=== PATIENT | male | born 1945 | race Caucasian/White ===

== ENCOUNTER → 2017-10-31 07:07 | Outpatient (CLI) | payer MEDICARE, SELFPAY ==
[2017-10-31 08:10] LABS: Add Manual Diff / Slide Review NO; Basophils Percent Auto 0.5 % (0-2); Eosinophils Percent Auto 5.9 % (2-4); Hematocrit 38.9 % (41-53); Hemoglobin 13.2 g/dL (13.5-17.5); Lymphocytes Percent Auto 36.8 % (25-40); Mean Corpuscular HGB Conc 33.9 % (30-36); Mean Corpuscular Hemoglobin 30.5 PG (26-34); Mean Corpuscular Volume 90.1 fL (80-100); Monocytes Percent Auto 11.3 % (3-14); Neutrophils Absolute Auto 2200 /uL (3000-5900); Neutrophils Percent Auto 45.5 % (50-75); Platelet Count 256 X10^3/uL (150-400); Red Blood Cell Count 4.32 X10^6/uL (4.5-5.9); White Blood Cell Count 4.8 X10^3/uL (4.5-11.0)
[2017-10-31 08:27] LABS: HEMOLYSIS < 15 (0-50); Iron 66 ug/dL (49-181)
[2017-10-31 08:38] LABS: Percent Iron Saturation 23 % (20-50); Total Iron Binding Capacity 284 ug/mL (261-462); Transferrin 220 mg/dL (206-381)
[2017-10-31 09:22] LABS: Reticulocyte Count, Percent 0.8 % (0.87-2.60)
[2017-10-31 09:38] LABS: Folate 8.5 ng/mL (2.76-20.0); Vitamin B12 860 pg/mL (239-931)
== END ==
PROVIDERS: PCP Internal Medicine; Visit Provider Internal Medicine
DX: R63.4 Abnormal weight loss (principal); D64.9 Anemia, unspecified
CPT/HCPCS: 36415; 82607; 82746; 83540; 83550; 84443; 85025; 85045

== ENCOUNTER → 2018-04-01 11:15 | Outpatient (CLI) | payer MEDICARE, SELFPAY ==
[2018-04-01 12:17] LABS: Add Manual Diff / Slide Review NO; Basophils Percent Auto 0.8 % (0-2); Eosinophils Percent Auto 4.2 % (2-4); Hematocrit 38.6 % (41-53); Lymphocytes Percent Auto 28.7 % (25-40); Mean Corpuscular HGB Conc 33.6 % (30-36); Mean Corpuscular Hemoglobin 30.2 PG (26-34); Mean Corpuscular Volume 89.8 fL (80-100); Monocytes Percent Auto 10.2 % (3-14); Neutrophils Absolute Auto 2700 /uL (3000-5900); Neutrophils Percent Auto 56.1 % (50-75); Platelet Count 310 X10^3/uL (150-400); Red Cell Distribution Width 14.7 % (11.6-14.8); White Blood Cell Count 4.8 X10^3/uL (4.5-11.0)
[2018-04-01 12:48] LABS: Alanine Aminotransferase 20 IU/L (21-72); Albumin 4.8 g/dL (3.5-5.0); Albumin Globulin Ratio 1.7 (1.0-2.8); Alkaline Phosphatase 42 U/L (38-126); Aspartate Aminotransferase 21 IU/L (17-59); BUN Creatinine Ratio 22.5 (6-22); Bilirubin Total 0.4 mg/dL (0.2-1.3); Blood Urea Nitrogen 18 mg/dL (9-20); Calcium 9.5 mg/dL (8.4-10.2); Carbon Dioxide 26 mmol/L (22-32); Chloride 104 mmol/L (98-107); Estimated Glomerular Filt Rate > 60.0 mL/min (>60); Globulin 2.8 g/dL (1.7-4.1); Glucose 87 mg/dL (80-110); HEMOLYSIS < 15 (0-50); Potassium 4.8 mmol/L (3.4-5.1); Sodium 143 mmol/L (137-145); Total Protein 7.6 g/dL (6.3-8.2)
[2018-04-01 13:21] LABS: Thyroid Stimulating Hormone 1.67 uIU/mL (0.47-4.68)
== END ==
PROVIDERS: PCP Registered Nurse; Visit Provider Registered Nurse
DX: D64.9 Anemia, unspecified (principal)
CPT/HCPCS: 36415; 80053; 84443; 85025

== ENCOUNTER → 2018-04-02 10:53 | Outpatient (CLI) | payer MEDICARE, SELFPAY ==
[2018-04-05 00:58] LABS: Fecal Immunochemical Test NOT DETECTED
== END ==
PROVIDERS: PCP Registered Nurse; Visit Provider Registered Nurse
DX: D64.9 Anemia, unspecified (principal)
CPT/HCPCS: 82274

== ENCOUNTER → 2018-04-07 09:22 | Outpatient (CLI) | payer MEDICARE, SELFPAY ==
--- NOTE | 2018-04-07 09:24 | DI.ECHO.S_ITS ---
[facility]---------+ [facility] +---------+ : : [address] : : : : [id number] : : : : Phone: [phone] Echocardiogram Report + + :Name: FORTUNATO BLAKE Study Date: 04/07/2018 Height: 66 in : :[facility] Weight: 146 lb : : Gender: Male BSA: 1.7 m2 : :: 1945 Age: 72 yrs BP: 129/58 mmHg: :Reason For Study: Murmur : : Performed By: Margaux Paz : :Referring: SALTY SAMS : + + Interpretation Summary Normal left ventricle size with ejection fraction 60-65%. Severely dilated left atrium. Mildly dilated right atrium. Severe posterior mitral valve prolapse. Severe mitral regurgitation, eccentric jet directed anteriorly. Mild aortic valve sclerosis. Mildly dilated aortic root. Procedure: A two-dimensional transthoracic echocardiogram with color flow and Doppler was performed. The study quality was technically good. Most of the acoustic windows were suboptimal, but the best imaging was obtained from the subcostal window. The patient was in normal sinus rhythm during the exam. Left Ventricle: The left ventricle is normal in size. There is normal left ventricular wall thickness. The ejection fraction is estimated to be 60-65%. There are no focal wall motion abnormalities. Diastolic function could not be accurately assessed due to confounding valvular disease. Right Ventricle: The right ventricle grossly appears normal in size with probable normal systolic function. Atria: The left atrium is severely dilated. The right atrium is mildly dilated. A patent foramen ovale is present. Mitral Valve: The mitral valve leaflets appear moderately thickened, but open well. There is prolapse of the posterior mitral valve leaflet(s). There is severe mitral valve prolapse. There is severe mitral regurgitation. There is an eccentric jet of mitral regurgitation that is directed anteriorly. Aortic Valve: The aortic valve is trileaflet. The aortic valve opens well. There is mild aortic valve sclerosis. There is trace aortic regurgitation. Tricuspid Valve: The tricuspid valve is normal in structure and function. There is trace tricuspid regurgitation. The right ventricular systolic pressure is estimated to be at least 24 mmHg based on an estimated right atrial pressure of 3 mm Hg. Pulmonic Valve: The pulmonic valve is not well visualized. There is trace pulmonic regurgitation. Great Vessels: The aortic root is mildly dilated. The ascending aorta is at the upper limits of normal in size. The aortic arch could not be visualized. The IVC is of normal diameter and collapses greater than 50% with a sniff. This suggests a low right atrial pressure of 3 mm Hg. Pericardium/ Pleura There is no pericardial effusion. There is no pleural effusion. MMode/2D Measurements & Calculations LVIDd: 5.3 cm Ao root diam: 4.0 cm LVIDs: 2.8 cm Aortic Jxn: 3.2 cm FS: 46.4 % asc Aorta Diam: 3.6 cm IVSd: 1.0 cm LVPWd: 0.97 cm LV titus. diameter/BSA (cm/m^2): 3.0 LV sys. diameter/BSA (cm/m^2): 1.6 LA dimension: 3.7 cm RA long axis: 4.9 cm LA A2 area: 27.4 cm2 RA area: 18.2 cm2 LA A4 area: 24.8 cm2 RA vol: 57.3 ml LA length (vol): 5.9 cm RA : 32.8 ml/m2 LA vol: 98.7 ml IVC diam: 1.3 cm LA vol index: 56.4 ml/m2 RVDd major: 5.6 cm RVD1 (basal): 4.0 cm RVD2 (mid): 3.3 cm Doppler Measurements & Calculations Ao V2 max: 166.2 cm/sec MV E max michael: 166.6 cm/sec Ao V2 mean: 95.9 cm/sec MV A max michael: 68.1 cm/sec Ao max P.1 mmHg MV E/A: 2.4 Ao mean P.8 mmHg Med Peak E' Michael: 10.5 cm/sec Ao V2 VTI: 31.9 cm E/E' med: 15.8 Lat Peak E' Michael: 10.3 cm/sec E/E' lat: 16.2 E/e' average: 16.0 MV dec time: 0.23 sec MV P1/2t: 68.1 msec MR ERO: 1.0 cm2 TR max michael: 230.9 cm/sec MV P1/2t max michael: 166.6 cm/sec TR max P.3 mmHg MVA(P1/2t): 3.2 cm2 PA V2 max: 83.5 cm/sec PA V2 mean: 54.6 cm/sec PA mean P.4 mmHg PA Accel Time: 0.14 sec MR flow rate: 586.0 cm3/sec MR PISA radius: 1.6 cm Electronically signed by: Avtar Antonio on Reading Physician:04/07/2018 02:47 PM
== END ==
PROVIDERS: Family Provider Family Medicine; PCP Family Medicine; Visit Provider Registered Nurse
DX: I08.0 Rheumatic disorders of both mitral and aortic valves (principal); R01.1 Cardiac murmur, unspecified; R06.02 Shortness of breath
CPT/HCPCS: 93306

== ENCOUNTER → 2018-06-02 07:02 | Outpatient (CLI) | payer MEDICARE, SELFPAY ==
[2018-06-02 09:13] LABS: Blood Urea Nitrogen 23 mg/dL (9-20); Calcium 9.4 mg/dL (8.4-10.2); Carbon Dioxide 28 mmol/L (22-32); Chloride 106 mmol/L (98-107); Estimated Glomerular Filt Rate > 60.0 mL/min (>60); Glucose 82 mg/dL (80-110); HEMOLYSIS < 15 (0-50); Potassium 4.7 mmol/L (3.4-5.1); Sodium 143 mmol/L (137-145)
== END ==
PROVIDERS: PCP Family Medicine; Visit Provider Registered Nurse
DX: I34.0 Nonrheumatic mitral (valve) insufficiency (principal); I08.0 Rheumatic disorders of both mitral and aortic valves
CPT/HCPCS: 36415; 80048

== ENCOUNTER → 2018-08-27 09:05 | Outpatient (CLI) | payer MEDICARE, SELFPAY ==
--- NOTE | 2018-08-27 09:07 | DI.US.S_ITS ---
PROCEDURE: US SCROTUM INDICATIONS: LUMP IN TESTICLE TECHNIQUE: Real-time scanning was performed of the scrotum and testicles, with image documentation. Color and pulse Doppler interrogation was performed of both testicles. COMPARISON: None. FINDINGS: Right: Testicle is normal in size at 2.0 x 3.4 x 4.7 cm, and homogenous in echotexture. Epididymis is normal in overall size and morphology. No significant hydrocele or varicoceles. Overlying scrotal skin is normal in thickness. At the inferior margin of the right testis, external to the testis, is a 1.3 x 1.0 x 1.3 cm solid masslike structure of similar echotexture to the testicular parenchyma, and separate from the epididymal tail. This contains internal blood flow, and appears to represent the likely etiology of the palpable abnormality clinically reported. Left: Testicle is normal in size at 1.9 x 3.1 x 4.8 cm, and homogeneous in echotexture. Epididymis is normal in overall size and morphology. No significant hydrocele or varicoceles. Overlying scrotal skin is normal in thickness. Doppler: Color and pulse Doppler demonstrate normal and symmetric arterial flow in both testicles. IMPRESSION: The testicular parenchyma bilaterally is normal, normal testicular blood flow is seen. There is a solid mass, near homogeneous in echotexture and similar in echotexture to the testicular parenchyma immediately more superiorly. This is separate from the epididymis and contains internal blood flow. 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 However, urology consultation is recommended for consideration of followup versus surgical excision. Dictated by: Gallo Lee M.D. on 08/27/2018 at 13:33 Approved by: Gallo Lee M.D. on 08/27/2018 at 13:39
== END ==
PROVIDERS: Family Provider Family Medicine; PCP Family Medicine; Visit Provider Family Medicine
DX: N50.9 Disorder of male genital organs, unspecified (principal)
CPT/HCPCS: 76870

== ENCOUNTER → 2018-10-31 08:59 | Outpatient (CLI) | payer MEDICARE, SELFPAY ==
--- NOTE | 2018-10-31 | DI.US.S_ITS ---
PROCEDURE: US CAROTID DOPPLER BI INDICATIONS: Dizziness and giddiness TECHNIQUE: Color and pulse Doppler interrogation was performed of both carotid systems, with image documentation and velocity measurements. COMPARISON: Outside Facility, RG, US CAROTID VERTEBRAL DUPLEX, 09/05/2018, 14:42. FINDINGS: Stenosis calculations are based on SRU (Society of Radiologists in Ultrasound) criteria. Right side: Brachial blood pressure: 160/73 mm Hg. Common carotid artery peak systolic velocity: 69 cm/sec (prior 106 cm/s). Internal carotid artery peak systolic velocity: 88 cm/sec (prior 629 cm/s). Internal carotid artery end diastolic velocity: 34 cm/sec (prior 186 cm/s). External carotid artery peak systolic velocity: 58 cm/sec (prior 103 cm/s). ICA/CCA peak systolic ratio: 1.3 (prior 5.9). Ryder scale imaging description: Right carotid endarterectomy changes have taken place. Percent internal carotid artery stenosis: Less than 50% by velocity criteria. Vertebral artery: Flow direction is antegrade. Left side: Brachial blood pressure: 171/75 mm Hg. Common carotid artery peak systolic velocity: 100 cm/sec (prior 137 cm/s). Internal carotid artery peak systolic velocity: 77 cm/sec (prior 99 cm/s). Internal carotid artery end diastolic velocity: 30 cm/sec (prior 33 cm/s). External carotid artery peak systolic velocity: 42 cm/sec (prior 81 cm/s). ICA/CCA peak systolic ratio: 0.8 (prior 0.7). Ryder scale imaging description: Mild atherosclerotic changes are seen. Percent internal carotid artery stenosis: Less than 50% by velocity criteria. Vertebral artery: Flow direction is antegrade. IMPRESSION: Interval right carotid endarterectomy, with resolution of the previously seen hemodynamically significant right internal carotid artery stenosis. Dictated by: Iggy Ordonez M.D. on 10/31/2018 at 10:46 Approved by: Iggy Ordonez M.D. on 10/31/2018 at 10:48
== END ==
PROVIDERS: PCP Family Medicine; Visit Provider Thoracic Surgery (Cardiothoracic Vascular Surgery)
DX: R42 Dizziness and giddiness (principal); Z98.890 Other specified postprocedural states
CPT/HCPCS: 93880

== ENCOUNTER 2019-03-02 08:20 | Day surgery (SDC) | payer MEDICARE, SELFPAY ==
--- NOTE | 2019-03-02 | PATH_ITS ---
[facility] Accession Number: [id number] . 01 Material submitted: . esophagus - AMLAGON'S ESOPHAGUS . 02 Diagnosis: Esophagus, Biopsy: Squamocolumnar junctional mucosa with specialized intestinal metaplasia, consistent with Malagon's esophagus. Negative for dysplasia and malignancy. MRV 03/04/2019 1013 Local . 02 Electronically signed: . Coretta Mesa MD, Pathologist NPI- [id number] . 01 Gross description: . MALAGON'S ESOPHAGUS: Received in formalin are 3 fragment(s) of gonzalez, soft tissue measuring 0.1 x 0.1 x 0.1 cm to 0.3 x 0.2 x 0.2 cm which is entirely submitted and submitted entirely in 1 cassette(s) /[facility] [place]/03/2019 1820 Local . 02 Pathologist provided ICD-10: K22.70 . 02 CPT . 773350 Performed at: 01 [facility] [address] [facility], [place], [place] [id number] MD Earl Abrams MD Phone: [phone] Performed at: 02 [facility] [address] [place], [place] [id number] MD Coretta Mesa MD Phone: [phone]
--- NOTE | 2019-03-02 08:14 | PM.HP.1 ---
History of Present Illness History of Present Illness Chief complaint: 24927 EGD Patient History Family & Social History Social History: household members spouse lives independently Yes caregiver/support person No Tobacco & Substance use: Smoking Status Former smoker alcohol intake former Meds Home Medications and Allergies Home Medications Medication Instructions Recorded Confirmed Type Disabled Parking Permit ea #1 09/12/17 02/25/19 Rx acetaminophen 500 mg tablet 1,000 mg PO Q6H PRN 04/01/18 02/25/19 History atorvastatin 10 mg tablet 10 mg PO DAILY 11/12/18 02/25/19 History lisinopril 10 mg tablet 10 mg PO DAILY 11/12/18 02/25/19 History midodrine 5 mg tablet 5 mg PO TID 11/12/18 02/25/19 History sennosides 8.6 mg tablet 8.6 mg PO BID PRN 11/12/18 02/25/19 History tamsulosin 0.4 mg capsule 0.4 mg PO DAILY 11/12/18 02/25/19 History warfarin 2.5 mg tablet 2.5 mg PO DAILY 11/12/18 02/25/19 History Allergies Allergy/AdvReac Type Severity Reaction Status Date / Time No Known Drug Allergies Allergy Verified 02/25/19 09:10
[2019-03-02 08:43] VITALS: BP 150/75; PULSE 89; RESP 16; TEMP 36.2; O2SAT 98; BMI 21.2
--- NOTE | 2019-03-02 09:06 | PM.PREOP ---
Pre-operative Note Interval Note History & Physical reviewed/Exam performed by Physician: Yes Changes to H&P: No ASA Class (for procedural sedation): II
[2019-03-02] MEDS: LIDOCAINE 4% SOLN 50 ML 20 ML TOP (09:20)
--- NOTE | 2019-03-02 09:28 | PM.OP.ENDO ---
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 No prior EGD following initial diagnosis. Surgeon: Bandar Glass Procedure Notes SCOAP/Timeout: Performed Procedure in detail: Scope was inserted into the mouth advanced down the esophagus into the stomach. The pylorus was intubated and the 1st portion of the duodenum was inspected and was normal wound appearance. Scope was retroflexed within the stomach was no evidence of hiatal hernia. The stomach was negative for gastritis. Scope was then withdrawn slowly into the esophagus and the GE junction was observed. There was a patch of salmon colored tissue near the GE junction that was biopsied in multiple places. The tissue was found to be hemostatic. This stomach was then desufflated and the scope was withdrawn. Scope withdrawal time: NA Sedation minutes: 11 Findings: Rand's esophagus Specimen(s): other (Biopsies from GE junction) Complications: none Impression: Rand's biopsy pending Post-procedure Recommendations: EGD in 3 years Disposition: same day surgery
[2019-03-02] MEDS: MIDAZOLAM 5 MG/5 ML VIAL IV (09:30)
[2019-03-02] MEDS: fentaNYL 250 MCG/5 ML INJ IV (09:31)
[2019-03-02 09:34] VITALS: BP 108/67; PULSE 79; RESP 12; TEMP 36.3; O2SAT 94
[2019-03-02 09:45] VITALS: BP 106/70; PULSE 72; RESP 14; O2SAT 97
[2019-03-02 09:50] VITALS: BP 109/70; PULSE 82; RESP 13; O2SAT 97
[2019-03-02 10:05] VITALS: BP 107/77; PULSE 86; RESP 19; TEMP 35.9; O2SAT 96
[2019-03-02 10:14] VITALS: BP 110/75; PULSE 84; RESP 18; TEMP 36.1; O2SAT 97
== END 2019-03-02 10:14 | disposition home or self-care (01) ==
PROVIDERS: PCP Family Medicine; Visit Provider Surgery
PROC: 0DJ08ZZ Inspection of Upper Intestinal Tract, Via Natural or Artificial Opening Endoscopic (ICD-10-PCS; CPT 43235; principal; 2019-03-02 09:15)
DX: K22.70 Barrett's esophagus without dysplasia (principal); Z79.01 Long term (current) use of anticoagulants
CPT/HCPCS: 43239; 99152; J2250; J3010

== ENCOUNTER → 2019-06-29 10:06 | Outpatient (CLI) | payer MEDICARE, SELFPAY ==
--- NOTE | 2019-06-29 10:11 | DI.RAD.S_ITS ---
PROCEDURE: XR CHEST 2V INDICATIONS: left rib pain TECHNIQUE: 2 views of the chest were acquired. COMPARISON: [facility], CHEST 1 VIEW, 09/30/2017, 16:42. [facility], CHEST 2 VIEW, 09/07/2015, 10:13. FINDINGS: Surgical changes and devices: Sternotomy wires, cardiac valve annulus noted.. Lungs and pleura: Lungs are clear. No pleural effusions or pneumothorax. Mediastinum: Mediastinal contours are normal. Heart size is normal. Bones and chest wall: No suspicious bony abnormalities. Surgical device noted right humeral head area. Soft tissues appear unremarkable. IMPRESSION: Prior cardiac surgery, source of left-sided rib pain found. Dictated by: Gallo Lee M.D. on 06/29/2019 at 11:10 Approved by: Gallo Lee M.D. on 06/29/2019 at 11:11
== END ==
PROVIDERS: PCP Family Medicine; Visit Provider Family Medicine
DX: R07.81 Pleurodynia (principal)
CPT/HCPCS: 71046

== ENCOUNTER → 2019-07-16 09:03 | Outpatient (CLI) | payer MEDICARE, SELFPAY ==
--- NOTE | 2019-07-16 09:07 | DI.US.S_ITS ---
PROCEDURE: US RENAL COMPLETE INDICATIONS: FLANK PAIN TECHNIQUE: Real-time scanning was performed of the kidneys and bladder, with image documentation. COMPARISON: [facility], CT, ABDOMEN/PELVIS WITH CONTRAST, 09/30/2017, 16:40. FINDINGS: Kidneys: Kidneys are normal in size. Right kidney measures 9.8 cm long; left kidney measures 9.9 cm long. Right renal cortical thickness is 1.2 cm; left renal cortical thickness is 1.6 cm. Renal cortical echotexture is normal. No hydronephrosis or nephrolithiasis. No suspicious solid mass lesions. Right renal cyst measuring 11 mm. Bladder: Pre-void bladder volume is 156 mL. Post-void residual is unable to be assessed as the patient was unable to void. Pre-void images demonstrate no intraluminal masses or stones. On pre-void images, left ureteral jets are noted with color Doppler interrogation. (Of note, ureteral jets may not be detectable in up to 25% of cases due to insufficient differences in specific gravity between ureteral and bladder urine). Miscellaneous: No free pelvic fluid. IMPRESSION: 11 mm right renal cyst; otherwise normal appearance of the kidneys. Dictated by: Jonathan Lagos [facility] Interpreted: Ector Phillips MD on 07/17/2019 at 8:30 Approved by: Ector Phillips M.D. on 07/17/2019 at 11:21
== END ==
PROVIDERS: PCP Family Medicine; Referring Provider Family Medicine; Visit Provider Family Medicine
DX: R10.9 Unspecified abdominal pain (principal); N28.1 Cyst of kidney, acquired
CPT/HCPCS: 76770

== ENCOUNTER → 2019-07-28 06:57 | Outpatient (CLI) | payer MEDICARE, SELFPAY ==
[2019-07-28 08:00] LABS: Blood Urea Nitrogen 25 mg/dL (9-20); Calcium 9.5 mg/dL (8.4-10.2); Carbon Dioxide 27 mmol/L (22-32); Chloride 107 mmol/L (98-107); Cholesterol 128 mg/dL (140-199); Estimated Glomerular Filt Rate > 60.0 mL/min (>60); Glucose 93 mg/dL (80-110); HDL Cholesterol 28 mg/dL (40-60); HEMOLYSIS < 15 (0-50); LDL Cholesterol Calculated 82 mg/dL (<100); Potassium 4.9 mmol/L (3.4-5.1); Sodium 141 mmol/L (137-145); Triglycerides 89 mg/dL (35-150)
[2019-07-28 08:06] LABS: Creatinine Urine Random 120.5 mg/dL
[2019-07-28 08:11] LABS: Microalbumi Creatinin Ratio Ur 9.1 ug/mg CR (<30); Microalbumin Urine Random 1.1 mg/dL (0-1.6)
== END ==
PROVIDERS: PCP Family Medicine; Referring Provider Family Medicine; Visit Provider Family Medicine
DX: Z98.890 Other specified postprocedural states (principal); Z79.899 Other long term (current) drug therapy; Z13.1 Encounter for screening for diabetes mellitus; E78.5 Hyperlipidemia, unspecified
CPT/HCPCS: 36415; 80048; 80061; 82043; 82570

== ENCOUNTER → 2019-08-17 13:54 | Outpatient (CLI) | payer MEDICARE, SELFPAY ==
--- NOTE | 2019-08-17 13:58 | DI.RAD.S_ITS ---
PROCEDURE: XR LUMBAR SPINE MIN 4V INDICATIONS: low back pain, hx of fusion TECHNIQUE: 5 views of the lumbar spine were acquired. COMPARISON: [facility], , L-SPINE 2-3 VIEWS, 05/23/2016, 14:01. FINDINGS: Bones: Severe scoliosis. Postsurgical changes related to posterior spinal fixation from L3-L5 with interbody cage grafts. Hardware appears grossly intact. Unchanged alignment. Multilevel degenerative endplate sclerosis and spurring. Diffuse facet arthropathy. Severe narrowing of the remaining lumbar disc spaces, although only mild L5-S1 disc space narrowing Soft tissues: Overlying bowel gas pattern is normal. No suspicious soft tissue calcifications. Oblique images: Limited due to severe arthritic changes IMPRESSION: No definite interval change in severe lumbar spondylosis and scoliosis since 05/23/16 Dictated by: Jeovanny Espinoza M.D. on 08/17/2019 at 16:47 Approved by: Jeovanny Espinoza M.D. on 08/17/2019 at 16:50
== END ==
PROVIDERS: PCP Family Medicine; Referring Provider Family Medicine; Visit Provider Family Medicine
DX: M54.5 Low back pain (principal); M47.816 Spondylosis without myelopathy or radiculopathy, lumbar region; M41.9 Scoliosis, unspecified; Z98.1 Arthrodesis status
CPT/HCPCS: 72110

== ENCOUNTER → 2020-03-14 15:48 | Outpatient (CLI) | payer MEDICARE, SELFPAY ==
--- NOTE | 2020-03-14 15:50 | DI.RAD.S_ITS ---
PROCEDURE: XR LUMBAR SPINE MIN 4V INDICATIONS: lower back pain TECHNIQUE: 5 views of the lumbar spine were acquired. COMPARISON: [facility], SHANI, L-SPINE 2-3 VIEWS, 05/23/2016, 14:01. [facility], CR, XR LUMBAR SPINE MIN 4V, 08/17/2019, 13:52. FINDINGS: Bones: 5 nonrib-bearing vertebrae are present. There is severe scoliosis. No vertebral body compression fractures. No suspicious bony lesions. Severe degenerative disc disease at L1-L2, L2-L3 and L3-L4. There is discectomy and posterior fusion at L4-L5 and L5-S1. Intact surgical hardware. Large right lateral osteophytes are seen. Soft tissues: Overlying bowel gas pattern is normal. Atherosclerotic calcifications. There is a large amount of stool in colon. Oblique images: No pars defects. IMPRESSION: Severe scoliosis with extensive degenerative and postsurgical changes in lumbar spine. Overall, there is no significant change from the last exam. Dictated by: Leona Ba M.D. on 03/14/2020 at 17:26 Approved by: Leona Ba M.D. on 03/14/2020 at 17:32
== END ==
PROVIDERS: PCP Family Medicine; Referring Provider Family Medicine; Visit Provider Registered Nurse
DX: M54.5 Low back pain (principal); M41.9 Scoliosis, unspecified; M51.36 Other intervertebral disc degeneration, lumbar region; Z98.1 Arthrodesis status
CPT/HCPCS: 72110

== ENCOUNTER → 2020-03-23 09:31 | Outpatient (CLI) | payer MEDICARE, SELFPAY | PROVIDERS: PCP Family Medicine; Referring Provider Family Medicine; Visit Provider Family Medicine | DX: Z13.820 Encounter for screening for osteoporosis (principal); M85.852 Other specified disorders of bone density and structure, left thigh; Z87.891 Personal history of nicotine dependence | CPT/HCPCS: 77080 ==

== ENCOUNTER → 2020-06-28 15:36 | Outpatient (CLI) | payer MEDICARE, SELFPAY ==
--- NOTE | 2020-06-28 15:41 | DI.RAD.S_ITS ---
PROCEDURE: XR LUMBAR SPINE MIN 4V INDICATIONS: right hip pain radiating to lumbar spine TECHNIQUE: 5 views of the lumbar spine were acquired. COMPARISON: [facility], CT, CT THORACIC SPINE WITHOUT CONTRAST, 12/01/2018, 12:06. [facility], CT, CT LUMBAR SPINE WITHOUT CONTRAST, 12/01/2018, 12:06. [facility], CR, XR LUMBAR SPINE MIN 4V, 03/14/2020, 15:49. FINDINGS: Bones: There is transitional anatomy partially lumbarized S1. 5 [id number] vertebrae are present. There is severe scoliosis. No vertebral bod compression fractures. No suspicious bony lesions. There is discectomy and posterior fusion at L4-L5 and L5-S1. Surgical hardware appear intact. Severe degenerative disc disease at L1-L2, L2-L3 and L3-L4. There are large right lateral osteophytes at L1-L2, L2-L3 and L3-L2-4. Soft tissues: Overlying bowel gas pattern is normal. No suspicious soft tissue calcifications. Severe atherosclerosis Oblique images: No pars defects. IMPRESSION: 1. Extensive degenerative and postsurgical changes in lumbar spine as described. 2. No acute abnormalities. 3. Please note transitional anatomy. S1 is partially lumbarized. Dictated by: Leona Ba M.D. on 06/28/2020 at 17:42 Approved by: Leona Ba M.D. on 06/28/2020 at 17:49
--- NOTE | 2020-06-28 15:41 | DI.RAD.S_ITS ---
PROCEDURE: XR HIP W PEL IF DONE RT 2V INDICATIONS: right hip pain radiating to lumbar spine TECHNIQUE: 2 views of the hip were acquired. COMPARISON: [facility], CR, [id number] W PEL IF PERFORMED, 09/07/2015, 10:13. FINDINGS: Bones: No fractures or dislocations. No suspicious bony lesions. The visualized pelvic ring appears intact. Mild joint narrowing with periarticular osteophyte formation of the hip joints bilaterally. Lower lumbar spine posterior fixation hardware present incompletely visualized. Soft tissues: No suspicious soft tissue calcifications or masses. IMPRESSION: Mild symmetric hip joint degeneration. Dictated by: Jonathan Lagos [facility] Interpreted: Ector Phillips MD on 06/28/2020 at 16:02 Approved by: Ector Phillips M.D. on 06/28/2020 at 16:39
== END ==
PROVIDERS: PCP Family Medicine; Referring Provider Family Medicine; Visit Provider Family Medicine
DX: M54.5 Low back pain (principal); M51.36 Other intervertebral disc degeneration, lumbar region; M41.9 Scoliosis, unspecified; M25.551 Pain in right hip; M16.0 Bilateral primary osteoarthritis of hip; M47.816 Spondylosis without myelopathy or radiculopathy, lumbar region; Z98.1 Arthrodesis status
CPT/HCPCS: 72110; 73502

== ENCOUNTER → 2020-07-25 08:49 | Outpatient (CLI) | payer MEDICARE, SELFPAY ==
[2020-07-25 10:10] LABS: BUN Creatinine Ratio 22.3 (6-22); Blood Urea Nitrogen 23 mg/dL (9-20); Calcium 9.1 mg/dL (8.4-10.2); Carbon Dioxide 27 mmol/L (22-32); Chloride 106 mmol/L (98-107); Estimated Glomerular Filt Rate > 60.0 mL/min (>60); Glucose 119 mg/dL (80-110); HEMOLYSIS < 15 (0-50); Potassium 4.3 mmol/L (3.4-5.1); Sodium 138 mmol/L (137-145)
== END ==
PROVIDERS: PCP Family Medicine; Referring Provider Internal Medicine Cardiovascular Disease; Visit Provider Internal Medicine Cardiovascular Disease
DX: R06.00 Dyspnea, unspecified (principal)
CPT/HCPCS: 36415; 80048

== ENCOUNTER 2020-10-17 11:16 | Emergency (ER) | payer MEDICARE, SELFPAY ==
--- NOTE | 2020-10-17 11:23 | DI.RAD.S_ITS ---
PROCEDURE: XR KNEE RT 3V INDICATIONS: crush injury, pain in knee TECHNIQUE: 3 views of the knee were acquired. COMPARISON: None. FINDINGS: Bones: No fractures or dislocations. No suspicious bony lesions. Mild tricompartmental periarticular osteophyte formation. Soft tissues: No joint effusion. No suspicious soft tissue calcifications. Medial and lateral compartment chondrocalcinosis. IMPRESSION: 1. Osteoarthritis. 2. Chondrocalcinosis. 3. No acute fracture. No osseous lesion. If symptoms and/or clinical suspicion for pathology persist, further assessment with repeat, or advanced imaging (e.g., CT, MRI, or bone scan) may be helpful for further assessment. Dictated by: Emerald Addison M.D. on 10/17/2020 at 11:42 Approved by: Emerald Addison M.D. on 10/17/2020 at 11:43
[2020-10-17 11:27] VITALS: BP 161/81; PULSE 78; RESP 16; TEMP 36.6; O2SAT 97
--- NOTE | 2020-10-17 11:34 | PC.NURSE ---
9 days ago the pt fell between a truck and utility trailer, the trailer rolled over his right knee. pt has pain when he flexes the leg, to the rt upper of knee.
--- NOTE | 2020-10-17 13:12 | ED_ITS ---
HPI - Extremity Injury (Lower) General Chief Complaint: Extremity Injury, Lower Stated Complaint: Swollen Knee post accident. Sent by [facility] Time Seen by Provider: 10/17/20 11:19 Source: patient Mode of arrival: Ambulatory Limitations: no limitations History of Present Illness HPI Narrative: 75M nonsmoker with history of HTN and hyperlipidemia presents with the chief complaint of right knee pain for a week. He was working with a loaded trailer and he fell and the trailer rolled over his knee. He has some mild pain with ambulation and an anterior abrasion but is otherwise well. He walked in under his own power without an antalgic gait. Patient initially went to the [facility] and was sent here. He has no redness, swelling, fever, chills, N/V or other. MD complaint: knee injury Onset (ago): day(s) Injury: Right: knee Place: street/outdoors Severity: mild Relieving factors: rest Exacerbating factors: movement Context: direct blow Other symptoms: none Related Data Home Medications Medication Instructions Recorded Confirmed acetaminophen 500 mg tablet 1,000 mg PO Q6H PRN 04/01/18 08/31/20 Previous Rx's Medication Instructions Recorded Disabled Parking Permit ea #1 09/12/17 mupirocin 2 % topical ointment 1 applic TOPICAL BID #22 g 05/09/20 sildenafil 25 mg tablet 25 mg PO DAILY PRN #20 tab 05/10/20 losartan 25 mg tablet 25 mg PO DAILY #90 tab 07/15/20 atorvastatin 20 mg tablet See Rx Instructions .ROUTE 10/14/20 .COMPLEX #90 tab Allergies Allergy/AdvReac Type Severity Reaction Status Date / Time No Known Drug Allergies Allergy Verified 10/17/20 11:33 Review of Systems Constitutional Constitutional: Denies chills, Denies fatigue, Denies fever(s), Denies frequent falls, Denies lethargy and Denies weakness Eyes Eyes: Denies change in vision, Denies eye discharge, Denies irritation and Denies loss of vision ENT Ears, Nose, Mouth, and Throat: Denies change in voice, Denies dizziness, Denies neck pain, Denies sore throat and Denies throat swelling Cardiovascular Cardiovascular: Denies chest pain, Denies irregular heart rhythm, Denies lightheadedness, Denies palpitations, Denies dyspnea, Denies dyspnea on exertion and Denies orthopnea Respiratory Respiratory: Denies cough, Denies dyspnea, Denies dyspnea on exertion and Denies wheezing Gastrointestinal Gastrointestinal: Denies abdominal pain, Denies change in bowel habits, Denies diarrhea, Denies nausea and Denies vomiting Musculoskeletal Musculoskeletal: Reports joint swelling, Denies neck pain and Denies numbness Integumentary/Breasts Skin/Breast: Denies pruritus, Denies erythema, Denies rash and Denies wounds Neurologic Neurologic: Denies behavioral changes, Denies confusion, Denies dizziness, Denies frequent falls, Denies loss of vision, Denies numbness and Denies weakness Psychiatric Psychiatric: Denies anxiety, Denies behavioral changes, Denies confusion, Denies depression, Denies homicidal ideation and Denies suicidal ideation Endocrine Endocrine: Denies fatigue, Denies flushing and Denies palpitations Hematologic/Lymphatic Hematologic/Lymphatic: Denies easy bruising Allergic/Immunologic Allergic/Immunologic: Denies urticaria, Denies throat swelling and Denies wheezing Patient History Medical History Basal cell carcinoma (BCC) Cataract (2010) Surgical History Anesthesia H/O carotid endarterectomy H/O mitral valve replacement History of spinal surgery (1973) History of spinal surgery (2006) Family History Father History of hip surgery Mother Pancreatic cancer Sister Cancer Sister Murmur, cardiac Social History marital status: number of children: 2 household members: spouse lives independently: Yes caregiver/support person: No housing: house Smoking Status: Former smoker second hand exposure: No alcohol intake: former substance use type: does not use Smoking Status: Former smoker alcohol intake frequency: 0-2 drinks per day Alcohol type: beer Substance Use Type: does not use Exam Narrative Exam Narrative: GENERAL: [75] year old patient appears stated age. Well- nourished, well-developed patient, in mild distress. HEAD: Atraumatic. Normocephalic. EYES: Pupils equal round and reactive. Extraocular motions intact. No scleral icterus. No injection or drainage. ENT: Nose without bleeding, purulent drainage. Throat without erythema, tonsillar hypertrophy or exudate. Airway patent. NECK: Trachea midline. Non tender CARDIOVASCULAR: Regular rate and rhythm without murmurs, gallops, or rubs. RESPIRATORY: Clear to auscultation. Breath sounds equal bilaterally. No wheezes, rales, or rhonchi. GASTROINTESTINAL: Abdomen soft, non-tender, nondistended. EXTREMITIES: No obvious deformity, small healing anterior abrasion, no effusion. No ligamentous instability. No joint line BACK: Nontender without deformity or crepitance. No flank tenderness. NEURO: AOx3. SKIN: No rash or erythema of visible areas Initial Vital Signs Initial Vital Signs: Vital Signs Temperature 97.8 F 10/17/20 11:27 Pulse Rate 78 10/17/20 11:27 Respiratory Rate 16 10/17/20 11:27 Blood Pressure 161/81 H 10/17/20 11:27 Pulse Oximetry 97 10/17/20 11:27 Course Orders Ordered: ED Orders 10/17/20 11:23 XR knee RT 3V Stat Vital Signs Vital signs: Vital Signs - 8 hr 10/17/20 11:27 Temperature 97.8 F Pulse Rate 78 Respiratory Rate 16 Blood Pressure 161/81 H Pulse Oximetry 97 MDM - Extremity Injury (Lower) Imaging Data Extremity x-ray #1: Radiologist's Impression: Chart Viewer Diagnostics DATE TYPE STATUS REF RANGE/AUTHOR Hx 10/17/20 11:23 Emerald Addison 06/28/20 15:41 Lyla Ba 06/28/20 15:41 Ector Phillips 03/23/20 10:47 03/23/20 09:35 03/14/20 15:50 Lyla Ba 08/17/19 13:58 Jeovanny Espinoza 07/16/19 09:07 Ector Phillips 06/29/19 10:11 Gallo Lee 03/02/19 08:20 10/31/18 00:00 Iggy Ordonez 08/27/18 09:07 Gallo Lee 04/07/18 09:24 Avtar Corona 09/30/17 16:37 09/30/17 16:37 Edmond Dasilva 75, M106/17/1944 [facility] 72.575kg Extremity Injury, Lower Search Chart No Data to Display NonFormulary Not Included in Conflicts ONSET 03/30/14 10/17/20 11:27 Edmond Dasilva 75 M [address] [id number] ReportSigned Patient: Edmond Dasilva FMR#: [id number]: 1945cct:[id number]/Sex: 75 / MDate of Service: 10/17/20Loc: EDAccession Number: [id number] Procedure: XR knee RT 3V Ordering Provider: Raheel Reardon D.O. PROCEDURE: XR KNEE RT 3V INDICATIONS: crush injury, pain in knee TECHNIQUE: 3 views of the knee were acquired. COMPARISON: None. FINDINGS: Bones: No fractures or dislocations. No suspicious bony lesions. Mild tricompartmental periarticular osteophyte formation. Soft tissues: No joint effusion. No suspicious soft tissue calcifications. Medial and lateral compartment chondrocalcinosis. IMPRESSION: 1. Osteoarthritis. 2. Chondrocalcinosis. 3. No acute fracture. No osseous lesion. If symptoms and/or clinical suspicion for pathology persist, further assessment with repeat, or advanced imaging (e.g., CT, MRI, or bone scan) may be helpful for further assessment. Dictated by: Emerald Addison M.D. on 10/17/2020 at 11:42 Approved by: Emerald Addison M.D. on 10/17/2020 at 11:43 Discharge Plan Departure Patient Disposition: Home Clinical Impression: Contusion of knee, right Qualifiers: Encounter type: initial encounter Qualified Code(s): S80.01XA - Contusion of right knee, initial encounter Instructions: DI for Knee Pain Activity Restrictions/Additional Instructions: *You have been diagnosed with [knee pain with very reassuring physical exam, x- ray shows no fracture or dislocation.] *What to do: *Please continue to take your regular medications as directed. [ ] New medication prescriptions sent to your pharmacy: [ ] [ ] New medication written as a paper prescription [x ] No new medications given *Please follow up with your primary care provider in 2-3 days, call for an appointment. Let them know you were seen in the Emergency Department and that we ask that you be seen in follow up. We will electronically transmit a record of today's note if your PCP is in our system *If you do not have a primary care provider please contact the [facility] Resource line at [phone]. They will ask some questions about your medical history and help get you set up with a doctor in the community. *Return to Emergency Department if you should have any new, worsening or concerning symptoms, such as [fever greater than 101 F, shaking chills, worsening pain, persistent vomiting or other bothersome symptoms] Prescriptions: No Action mupirocin 2 % ointment 1 applic topical BID Qty: 22 RF: 2 Disabled Parking Permit Qty: 1 RF: 0 sildenafil 25 mg tablet 25 mg PO DAILY PRN (Reason: sexual activity) Qty: 20 RF: 0 losartan 25 mg tablet 25 mg PO DAILY Qty: 90 RF: 0 atorvastatin 20 mg tablet See Rx Instructions .ROUTE .COMPLEX Qty: 90 RF: 0 acetaminophen [Tylenol Extra Strength] 500 mg tablet 1,000 mg PO Q6H PRN (Reason: Pain, Moderate) RF: 0 Referrals: Ivon Wiley MD [Primary Care Provider] -
== END 2020-10-17 12:02 | disposition home or self-care (01) ==
PROVIDERS: Emergency Provider Emergency Medicine; PCP Family Medicine
DX: S80.01XA Contusion of right knee, initial encounter (principal); W19.XXXA Unspecified fall, initial encounter
CPT/HCPCS: 73562; 99281; 99283

== ENCOUNTER → 2021-02-22 10:12 | Outpatient (CLI) | payer MEDICARE, SELFPAY ==
[2021-02-22 11:17] LABS: Add Manual Diff / Slide Review NO; Basophils Absolute Auto 0 /uL (0-100); Basophils Percent Auto 0.4 % (0-2); Eosinophils Absolute Auto 100 /uL (0-450); Eosinophils Percent Auto 1.8 % (2-4); Hematocrit 41.4 % (41-53); Hemoglobin 13.9 g/dL (13.5-17.5); Lymphocytes Absolute Auto 1200 /uL (1100-4500); Lymphocytes Percent Auto 17.2 % (25-40); Mean Corpuscular HGB Conc 33.5 % (30-36); Mean Corpuscular Hemoglobin 31.7 PG (26-34); Mean Corpuscular Volume 94.7 fL (80-100); Monocytes Absolute Auto 700 /uL (0-900); Monocytes Percent Auto 9.2 % (3-14); Neutrophils Absolute Auto 5100 /uL (1500-7000); Neutrophils Percent Auto 71.4 % (50-75); Platelet Count 345 X10^3/uL (150-400); Red Blood Cell Count 4.38 X10^6/uL (4.5-5.9); Red Cell Distribution Width 13.6 % (11.6-14.8); White Blood Cell Count 7.2 X10^3/uL (4.5-11.0)
[2021-02-22 11:36] LABS: Alanine Aminotransferase 18 IU/L (<50); Albumin 4.8 g/dL (3.5-5.0); Albumin Globulin Ratio 1.6 (1.0-2.8); Alkaline Phosphatase 57 U/L (38-126); Aspartate Aminotransferase 35 IU/L (17-59); BUN Creatinine Ratio 17.9 (6-22); Bilirubin Total 0.4 mg/dL (0.2-1.3); Blood Urea Nitrogen 14 mg/dL (9-20); Calcium 9.7 mg/dL (8.4-10.2); Carbon Dioxide 27 mmol/L (22-32); Chloride 104 mmol/L (98-107); Estimated Glomerular Filt Rate > 60.0 mL/min (>60); Glucose 93 mg/dL (80-110); HEMOLYSIS < 15 (0-50); Potassium 4.6 mmol/L (3.4-5.1); Sodium 140 mmol/L (137-145); Total Protein 7.8 g/dL (6.3-8.2)
[2021-02-22 12:04] LABS: TSH w/ Reflex to FT4 0.94 uIU/mL (0.47-4.68)
[2021-02-22 12:38] LABS: Folate > 20.0 ng/mL (2.76-20.0); Vitamin B12 427 pg/mL (239-931)
== END ==
PROVIDERS: PCP Student in an Organized Health Care Education/Training Program; Referring Provider Student in an Organized Health Care Education/Training Program; Visit Provider Student in an Organized Health Care Education/Training Program
DX: R41.82 Altered mental status, unspecified (principal)
CPT/HCPCS: 36415; 80053; 82607; 82746; 84443; 85025

== ENCOUNTER → 2021-02-24 06:47 | Outpatient (CLI) | payer MEDICARE, SELFPAY ==
--- NOTE | 2021-02-24 06:48 | DI.MRI.S_ITS ---
PROCEDURE: MR HEAD/BRAIN WO CON INDICATIONS: Altered mental status TECHNIQUE: Non-contrast axial T1 spin echo, axial T2 fast spin echo, sagittal and axial FLAIR, coronal T2 fast spin echo, axial gradient echo, axial diffusion and ADC through the brain. COMPARISON: None. FINDINGS: Image quality: Patient motion artifact.. CSF spaces: Ventricles appear symmetric in size and shape. Basal cisterns are patent. No extra-axial fluid collections. Brain: No intracranial bleeds or mass effects. There is cerebral volume loss for age. There are periventricular and deep white matter chronic small vessel ischemic changes. Brainstem appears normal. Diffusion-weighted images show no acute ischemic insults. There is encephalomalacia focally in the right temporal lobe adjacent to the temporal horn of the right lateral ventricle with a degree of compensatory dilatation of the temporal horn of the right lateral ventricle. This may represent an area of old infarct or an area of posttraumatic change. Normal intravascular flow voids are present. Skull and face: Calvarial bone marrow is normal in signal. Orbits are normal. Sinuses: Sinuses and mastoids are clear. IMPRESSION: 1. Age-related volume loss and small vessel ischemic change. 2. Focal encephalomalacia in the right temporal lobe, possibly representing sequelae of prior infarct versus posttraumatic change. 3. No evidence acute stroke, hemorrhage, or mass. Dictated by: Gavino Pruitt M.D. on 02/24/2021 at 8:33 Approved by: Gavino Pruitt M.D. on 02/24/2021 at 8:37
== END ==
PROVIDERS: PCP Student in an Organized Health Care Education/Training Program; Referring Provider Student in an Organized Health Care Education/Training Program; Visit Provider Student in an Organized Health Care Education/Training Program
DX: R41.82 Altered mental status, unspecified (principal); G93.89 Other specified disorders of brain
CPT/HCPCS: 70551

== ENCOUNTER → 2021-03-31 07:03 | Outpatient (CLI) | payer MEDICARE, SELFPAY ==
[2021-03-31 08:11] LABS: Add Manual Diff / Slide Review NO; Basophils Absolute Auto 0 /uL (0-100); Basophils Percent Auto 0.4 % (0-2); Eosinophils Absolute Auto 200 /uL (0-450); Eosinophils Percent Auto 2.4 % (2-4); Hemoglobin 14.4 g/dL (13.5-17.5); Lymphocytes Absolute Auto 1400 /uL (1100-4500); Lymphocytes Percent Auto 20.5 % (25-40); Mean Corpuscular HGB Conc 33.5 % (30-36); Mean Corpuscular Hemoglobin 31.4 PG (26-34); Mean Corpuscular Volume 93.6 fL (80-100); Monocytes Absolute Auto 600 /uL (0-900); Neutrophils Absolute Auto 4800 /uL (1500-7000); Neutrophils Percent Auto 67.7 % (50-75); Platelet Count 381 X10^3/uL (150-400); Red Blood Cell Count 4.59 X10^6/uL (4.5-5.9); Red Cell Distribution Width 13.7 % (11.6-14.8)
[2021-03-31 08:44] LABS: Alanine Aminotransferase 17 IU/L (<50); Albumin 4.7 g/dL (3.5-5.0); Albumin Globulin Ratio 1.7 (1.0-2.8); Alkaline Phosphatase 61 U/L (38-126); Aspartate Aminotransferase 33 IU/L (17-59); BUN Creatinine Ratio 16.1 (6-22); Bilirubin Total 0.8 mg/dL (0.2-1.3); Blood Urea Nitrogen 15 mg/dL (9-20); Calcium 9.8 mg/dL (8.4-10.2); Carbon Dioxide 28 mmol/L (22-32); Chloride 105 mmol/L (98-107); Cholesterol 182 mg/dL (140-199); Estimated Glomerular Filt Rate > 60.0 mL/min (>60); Globulin 2.7 g/dL (1.7-4.1); Glucose 93 mg/dL (80-110); HDL Cholesterol 53 mg/dL (40-60); HEMOLYSIS < 15 (0-50); LDL Cholesterol Calculated 87 mg/dL (<100); Sodium 141 mmol/L (137-145); Total Protein 7.4 g/dL (6.3-8.2); Triglycerides 209 mg/dL (35-150)
== END ==
PROVIDERS: PCP Student in an Organized Health Care Education/Training Program; Referring Provider Nurse Practitioner Family; Visit Provider Nurse Practitioner Family
DX: E78.5 Hyperlipidemia, unspecified (principal); I25.10 Atherosclerotic heart disease of native coronary artery without angina pectoris
CPT/HCPCS: 36415; 80053; 80061; 85025

== ENCOUNTER 2021-05-02 20:08 | Emergency (ER) | payer MEDICARE, SELFPAY ==
[2021-05-02 20:20] VITALS: BP 153/73; PULSE 81; RESP 15; TEMP 36.8; O2SAT 97; BMI 24.5
[2021-05-02 20:46] LABS: Add Manual Diff / Slide Review NO; Basophils Absolute Auto 0 /uL (0-100); Basophils Percent Auto 0.9 % (0-2); Eosinophils Absolute Auto 200 /uL (0-450); Eosinophils Percent Auto 4.6 % (2-4); Hematocrit 40.8 % (41-53); Hemoglobin 13.7 g/dL (13.5-17.5); Lymphocytes Absolute Auto 1500 /uL (1100-4500); Lymphocytes Percent Auto 32.6 % (25-40); Mean Corpuscular HGB Conc 33.6 % (30-36); Mean Corpuscular Hemoglobin 31.3 PG (26-34); Monocytes Absolute Auto 500 /uL (0-900); Monocytes Percent Auto 11.5 % (3-14); Neutrophils Absolute Auto 2300 /uL (1500-7000); Neutrophils Percent Auto 50.4 % (50-75); Platelet Count 301 X10^3/uL (150-400); Red Blood Cell Count 4.39 X10^6/uL (4.5-5.9); Red Cell Distribution Width 13.3 % (11.6-14.8); White Blood Cell Count 4.5 X10^3/uL (4.5-11.0)
[2021-05-02 20:57] LABS: Alanine Aminotransferase 21 IU/L (<50); Albumin 4.3 g/dL (3.5-5.0); Albumin Globulin Ratio 1.5 (1.0-2.8); Alkaline Phosphatase 54 U/L (38-126); Aspartate Aminotransferase 38 IU/L (17-59); BUN Creatinine Ratio 14.8 (6-22); Bilirubin Total 0.2 mg/dL (0.2-1.3); Blood Urea Nitrogen 13 mg/dL (9-20); Calcium 9.1 mg/dL (8.4-10.2); Carbon Dioxide 24 mmol/L (22-32); Chloride 105 mmol/L (98-107); Estimated Glomerular Filt Rate > 60.0 mL/min (>60); Globulin 2.8 g/dL (1.7-4.1); Glucose 97 mg/dL (80-110); HEMOLYSIS < 15 (0-50); Lipase 436 U/L (23-300); Potassium 4.3 mmol/L (3.4-5.1); Sodium 140 mmol/L (137-145); Total Protein 7.1 g/dL (6.3-8.2)
--- NOTE | 2021-05-02 21:18 | ED_ITS ---
HPI - Abdominal Pain General Chief Complaint: Abdominal Pain Stated Complaint: stomach issues Time Seen by Provider: 05/02/21 20:30 Source: patient and family Mode of arrival: Wheelchair History of Present Illness HPI narrative: Patient is a 76-year-old male history of alcohol abuse, hypertension, hyperlipidemia presenting today with sudden onset of abdominal pain that started about 40 minutes ago. Since his arrival in the emergency department it has gotten. He did drink alcohol today. He is not nauseous vomiting. No other complaints in fact he would like to go. His would like him to be evaluated. At this time he does agree to have blood work and some workup. But he is overall feeling better. Related Data Home Medications Medication Instructions Recorded Confirmed acetaminophen 500 mg tablet 1,000 mg PO Q6H PRN 04/01/18 02/22/21 (Tylenol Extra Strength) Previous Rx's Medication Instructions Recorded mupirocin 2 % topical ointment 1 applic TOPICAL BID #22 g 05/09/20 losartan 25 mg tablet 25 mg PO DAILY #90 tab 07/15/20 atorvastatin 20 mg tablet See Rx Instructions .ROUTE 01/17/21 .COMPLEX #90 tab Allergies Allergy/AdvReac Type Severity Reaction Status Date / Time No Known Drug Allergies Allergy Verified 02/22/21 09:23 Review of Systems Review of Systems Narrative: GENERAL: Denies chills, fatigue, malaise, fever, sweats, travel HEENT: Denies sinus pain, ear pain, sore throat, difficulty swallowing, neck pain RESPIRATORY: Denies dyspnea, cough, wheezing, hemoptysis, sputum. CARDIOVASCULAR: Denies chest pain, palpitations, orthopnea, edema GASTROINTESTINAL: Denies nausea, vomiting, abdominal pain, diarrhea, constipation, melena. : Denies dysuria, frequency, incontinence, hematuria, urinary retention, flank pain. MUSCULOSKELETAL: Denies weakness, joint pain, or bony pain SKIN: No rash, no erythema, no pruritus NEUROLOGIC: Denies weakness, dizziness, headache, numbness, change in speech, confusion PSYCHIATRIC: No concerning psychosocial issues. 12 point review of systems is negative except for those stated above and HPI Patient History Medical History Basal cell carcinoma (BCC) (~2005) Cataract (2010) Chronic back pain (~2020) Developmental reading disorder, unspecified (09/14/02) Diverticulosis large intestine w/o perforation or abscess w/o bleeding (10/22/11) Left sided sciatica Osteoporosis Scoliosis Surgical History Anesthesia H/O carotid endarterectomy H/O mitral valve replacement (~11/06/18) History of spinal surgery (1973) History of spinal surgery (2006) Family History Father History of hip surgery Mother Pancreatic cancer Sister Cancer Sister Murmur, cardiac Social History marital status: number of children: 2 household members: spouse lives independently: Yes caregiver/support person: No housing: house Smoking Status: Former smoker second hand exposure: No alcohol intake: former substance use type: does not use Smoking Status: Former smoker alcohol intake frequency: 3 or more drinks per day Alcohol type: beer Substance Use Type: does not use Exam Initial Vital Signs Initial Vital Signs: Vital Signs Temperature 98.2 F 05/02/21 20:20 Pulse Rate 81 05/02/21 20:20 Respiratory Rate 15 05/02/21 20:20 Blood Pressure 153/73 H 05/02/21 20:20 Pulse Oximetry 97 05/02/21 20:20 GENERAL: Alert 76-year-old male appears older than stated age HEENT: Head atraumatic,EOMI, pupils reactive, face symmetric, [moist] mucous membranes CARDIOVASCULAR: Regular rate and rhythm without murmurs, rubs or gallops. RESPIRATORY: Breath sounds equal bilaterally, no wheezes rales or rhonchi. ABDOMEN: Soft, minimal Periumbilical pain no guarding no rebound right quadrant pain normal bowel sounds quads : No CVA tenderness EXTREMITIES: Normal range of motion, no clubbing or edema. Neurovascularly intact NEUROLOGICAL: Alert and oriented x4.Normal gait and speech. SKIN: Warm, dry, no laceration, no petechiae, no rashes or lesions. Course Orders Ordered: ED Orders 05/02/21 20:35 Complete Blood Count AUTO DIFF Stat Comprehensive Metabolic Panel Stat Lipase Stat Vital Signs Vital signs: Vital Signs - 8 hr 05/02/21 20:20 05/02/21 21:58 Temperature 98.2 F Pulse Rate 81 88 Respiratory Rate 15 14 Blood Pressure 153/73 H 124/86 Pulse Oximetry 97 98 MDM - Abdominal Pain Lab Data Result diagrams: 05/02/21 20:35 05/02/21 20:35 Labs: Lab Results 05/02/21 05/02/21 Range/Units 20:35 20:35 WBC 4.5 (4.5-11.0) X10^3/uL RBC 4.39 L (4.5-5.9) X10^6/uL Hgb 13.7 (13.5-17.5) g/dL Hct 40.8 L (41-53) % MCV 93.0 (80-100) fL MCH 31.3 (26-34) PG MCHC 33.6 (30-36) % RDW 13.3 (11.6-14.8) % Plt Count 301 (150-400) X10^3/uL Neut % (Auto) 50.4 (50-75) % Lymph % (Auto) 32.6 (25-40) % [place] % (Auto) 11.5 (3-14) % Eos % (Auto) 4.6 H (2-4) % Baso % (Auto) 0.9 (0-2) % Neut # (Auto) 2300 (8939-7761) /uL Lymph # (Auto) 1500 (2791-3339) /uL [place] # (Auto) 500 (0-900) /uL Eos # (Auto) 200 (0-450) /uL Baso # (Auto) 0 (0-100) /uL Sodium 140 (137-145) mmol/L Potassium 4.3 (3.4-5.1) mmol/L Chloride 105 (98-107) mmol/L Carbon Dioxide 24 (22-32) mmol/L BUN 13 (9-20) mg/dL Creatinine 0.88 (0.66-1.25) mg/dL Estimated GFR > 60.0 (>60) mL/min BUN/Creatinine Ratio 14.8 (6-22) Glucose 97 (80-110) mg/dL Calcium 9.1 (8.4-10.2) mg/dL Total Bilirubin 0.2 (0.2-1.3) mg/dL AST 38 (17-59) IU/L ALT 21 (<50) IU/L Alkaline Phosphatase 54 (38-126) U/L Total Protein 7.1 (6.3-8.2) g/dL Albumin 4.3 (3.5-5.0) g/dL Globulin 2.8 (1.7-4.1) g/dL Albumin/Globulin Ratio 1.5 (1.0-2.8) Lipase 436 H (23-300) U/L Point of care testing: Urine Dip Bedside Urine Glucose Negative Bedside Urine Bilirubin - Negative Bedside Urine Ketone - Negative Urine Specific [place] 1.010 Bedside Urine Occult Blood - Negative Bedside Urine pH 6.0 Bedside Urine Protein - Negative Bedside Urine Urobilinogen - Negative Bedside Urine Nitrite - Negative Bedside Urine Leukocytes - Negative Esterase MDM Narrative Medical decision making narrative: At this time patient's pain has resolved. No sign of pancreatitis. He is ambulatory in strep is emergency department clinically sober. His at this time would like to go home. At this time I see no need to do any imaging Discharge Plan Departure Patient Disposition: Home Clinical Impression: Alcohol abuse, Abdominal pain Instructions: Alcohol Use Disorder, DI for Abdominal Pain-Adult Activity Restrictions/Additional Instructions: *You have been diagnosed with Alcohol abuse, abdominal pain *What to do: At this time blood work is overall reassuring. I recommended she would like to stop drinking alcohol that you go to detox or decrease slowly so that you do not have a withdrawal seizure *Continue to take medications as directed *Follow up with your primary care provider in 2-3 days *Return to ER if you should have Increasing abdominal pain, persistent vomiting, seizure or any new, worsening or concerning symptoms Prescriptions: No Action mupirocin 2 % ointment 1 applic topical BID Qty: 22 2RF losartan 25 mg tablet 25 mg PO DAILY Qty: 90 0RF atorvastatin 20 mg tablet See Rx Instructions .ROUTE .COMPLEX Qty: 90 3RF Dose Instruction: TAKE 1 TABLET BY MOUTH EVERY EVENING Rx Instructions: TAKE 1 TABLET BY MOUTH EVERY EVENING acetaminophen [Tylenol Extra Strength] 500 mg tablet 1,000 mg PO Q6H PRN (Reason: Pain, Moderate) 0RF Referrals: Jarvis Allen MD [Primary Care Provider] -
[2021-05-02 21:58] VITALS: BP 124/86; PULSE 88; RESP 14; O2SAT 98
== END 2021-05-02 21:58 | disposition home or self-care (01) ==
PROVIDERS: Emergency Provider Emergency Medicine; PCP Student in an Organized Health Care Education/Training Program
DX: F10.10 Alcohol abuse, uncomplicated (principal); R10.33 Periumbilical pain; Z87.891 Personal history of nicotine dependence
CPT/HCPCS: 36415; 80053; 81003; 83690; 85025; 99283